=== PATIENT | male | born 2005 | race Caucasian/White ===

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

== ENCOUNTER 2024-11-21 05:33 | Emergency (ER) | payer BC ==
[~2024-11-21] VITALS: Ht 167.6 cm; Wt 81.6 kg
[~2024-11-21 05:33] MED LIST changes: +FLOMAX0.4 MG PO; +MOTRIN 600 MG E4 TAB PO; +ZOFRAN4 MG PO
[2024-11-21] MEDS ORDERED: Ketorolac Tromethamine 15 MG/ML VIAL IV ONE (06:10)
[2024-11-21] MEDS ORDERED: Ondansetron Hydrochloride 4 MG/2 ML VIAL IV ONE (06:10)
[2024-11-21] MEDS ORDERED: SODIUM CHLORIDE 0.9% 1,000 ML IV ONE (06:10)
[2024-11-21 06:44] LABS: BILIRUBIN Negative (Negative); BLOOD 2+ (Negative); CLARITY Clear (Clear); COLOR Yellow (Yellow); GLUCOSE Negative (Negative); KETONE Negative (Negative); LEUKO ESTERASE Negative (Negative); NITRITE Negative (Negative); PH 5.5 (4.5-8.0); SPECIFIC GRAVITY 1.015 (1.001-1.030); UROBILINOGEN 0.2 E.U./dl (0.0-1.0)
[2024-11-21 06:45] LABS: BASO # 0.1 10*3/uL (0.0-0.1); BASO % 0.7 % (0.0-1.0); EOS # 0.3 10*3/uL (0.0-0.4); EOS % 3.4 % (1.0-4.0); HEMATOCRIT 45.5 % (42.0-52.0); MEAN CELL VOLUME 86.2 fl (80.0-94.0); MEAN CORPUSCULAR HGB 28.6 pg (27.0-31.0); MEAN CORPUSCULAR HGB CONC 33.2 g/dl (33.0-37.0); MEAN PLATELET VOLUME 9.8 fl (9.6-12.3); MONO # 0.6 10*3/uL (0.1-1.0); MONO % 6.6 % (3.0-9.0); NEUT # 4.7 10*3/uL (2.3-7.9); NEUT % 53.5 % (47.0-73.0); PLATELET COUNT AUTOMATED 304 10*3/uL (130-400); RED BLOOD COUNT 5.28 10*6/uL (4.50-5.90); RED CELL DISTRI WIDTH 12.2 % (0-14.5); WHITE BLOOD COUNT 8.8 10*3/uL (4.8-10.8)
[2024-11-21 07:10] LABS: RBC 31-40 rbc/hpf (0-2)
[2024-11-21 07:11] LABS: BACTERIA 1+
[2024-11-21 07:12] LABS: BUN 15 mg/dl (9-23); CHLORIDE 105 mmol/L (98-107)
[2024-11-21] MEDS ORDERED: CIPRO500 MG PO (08:09)
[2024-11-21] MEDS ORDERED: MELOXICAM15 MG PO (08:09)
[2024-11-21] MEDS ORDERED: FLOMAX0.4 MG PO (08:09)
== END 2024-11-21 08:11 | disposition home or self-care (01) ==
LOC: ED 05:33
PROVIDERS: Emergency Medicine
DX: N20.0 Calculus of kidney (principal); R11.10 Vomiting, unspecified; Z87.442 Personal history of urinary calculi; Z79.899 Other long term (current) drug therapy